=== PATIENT | female | born 1960 | race Caucasian/White ===

== ENCOUNTER 2016-10-15 07:33 | Day surgery (SDC) | payer MEDICARE, MEDICAID ==
--- NOTE | 2016-10-15 06:30 | History and Physical Report ---
DATE: 10/14/2016. CHIEF COMPLAINT: This patient presents with a history of an intractable central pain pattern currently treated by a spinal opioid infusion device with Baclofen. HISTORY OF PRESENT ILLNESS: She was referred to our facility from out of the region and arrived with a pump at battery depletion. She is here for programmable pump battery replacement. PAST MEDICAL HISTORY: Seizure disorder, central pain syndrome with cerebrovascular stroke. SOCIAL HISTORY: Smoking, caffeine. FAMILY HISTORY: Noncontributory. PAST SURGICAL HISTORY: Intraspinal opioid infusion system placement with revision and intracranial surgery. MEDICATIONS ON ADMISSION: List to be provided. ALLERGIES: None identified. REVIEW OF SYSTEMS: The patient is appropriate in no acute distress. The remainder of the systems review is positive for headaches and lower extremity pain. PHYSICAL EXAMINATION: General: Height and weight are not known. Vital Signs: Unavailable. HEENT: Within normal limits. Lungs: Clear. Heart: Regular rate and rhythm. Abdomen: Nontender. Musculoskeletal: Examination of the musculoskeletal system shows the pump in the left lower abdominal quadrant. The incisional site is intact. The midline incision for the catheter approximates L3-4. The tip of the catheter under imaging identified at T-1. Primary pain pattern appears to be lower extremity, left anterior surface. Sensory ag are intact. Ambulation: Assistive device utilized. Neurologic: Cranial nerves are intact. IMPRESSION: 1. CENTRAL PAIN SYNDROME WITH UPPER AND LOWER EXTREMITY SPASTICITY, ICD-10 CODE G89.0. 2. SPINAL OPIOID INFUSION SYSTEM WITH BACLOFEN, DEPLETED BATTERY. PLAN: The patient is here for battery replacement on an outpatient basis. No changes to the infusion parameters will be made at this time. The procedure will be considered outpatient, although an overnight stay will be evaluated. JOB NUMBER: [id number] cc: Dr. Benita SHERMAN
[~2016-10-15 07:33] MED LIST: ACETAMINOPHEN 1,000 MG/100 ML BTL IV ONE; BACLOFEN IV ONE; CEFAZOLIN 2 Gram 2 GM/50 ML BAG IVPB ONE; FAMOTIDINE 20MG TABLET PO ONE; MECLIZINE 25 MG TABLET PO ONE; METOCLOPRAMIDE 10 MG TABLET PO ONE; SODIUM CHLORIDE 0.9% IV ONE
[2016-10-15] MEDS ORDERED: LIDOCAINE 1% W/EPI 1:200,000 MPF 30ML SQ ONE (13:37)
[2016-10-15] MEDS ORDERED: BUPIVACAINE 0.5% W/EPI MPF 30 ML VIAL IVP ONE (13:37)
[2016-10-15] MEDS ORDERED: CEFAZOLIN 1G VIAL IM ONE (13:37)
[2016-10-15] MEDS ORDERED: LIDOCAINE 2% MDV (20MG/ML) 20ML VIAL IV ONE (14:00)
[2016-10-15] MEDS ORDERED: FENTANYL PF 100MCG/2ML VIAL IV ONE (14:00)
[2016-10-15] MEDS ORDERED: PROPOFOL 10 MG/ML VIAL IV ONE (14:00)
[2016-10-15] MEDS ORDERED: MIDAZOLAM HCL 2MG/2ML VIAL IV ONE (14:00)
--- NOTE | 2016-10-15 15:47 | Operative Note - Ferro ---
DATE OF SURGERY: 10/15/16 PREOPERATIVE DIAGNOSES: 1. CENTRAL PAIN SYNDROME, ICD-10 CODE = 89.0 2. BACLOFEN INFUSION SYSTEM FOR PAIN CONTROL BATTERY DEPLETION. OPERATION: 1. INCISION, SUBCUTANEOUS DISSECTION AND REMOVAL AND REPLACEMENT OF PROGRAMMABLE PUMP MEDTRONIC 20 ML BACLOFEN LEFT LOWER ABDOMINAL QUADRANT. 2. RESECTION CATHETER AT PUMP POUCH. 3. INTERFACE RESECTED CATHETER WITH NEW PUMP PRE-FILLED BACLOFEN. PROGRAMMING OF PUMP TO ORIGINAL INFUSION 120 MCG PER DAY BACLOFEN. 4. DIAGNOSTIC MYELOGRAPHY WITH RADIOLOGIC SUPERVISION AND INTERPRETATION. 5. CLOSURE OF INCISIONS VICRYL FOR FASCIA AND RUNNING SUBCUTICULAR VICRYL FOR SKIN. SURGEON: JACOB BEAL D.O. ANESTHESIA: LOCAL SEDATION. ANESTHESIA PROVIDER: SULEMA COOPER CRNA INDICATION: This patient presents with a post-stroke pain pattern, which is upper and lower extremity. A Baclofen infusion system infusing 120 mcg per day; Baclofen placed [place]. She is here for battery replacement. Recent programming identified battery depletion. PROCEDURE: Intravenous line, vital sign monitoring, IV sedation, prepped and draped with sterile technique by Anesthesia. Patient position on the Operating Room table supine. Pump pouch at the left lower abdominal quadrant was identified. Sterile prep, sterile technique. Under imaging, skin infiltrated, incision made, and subcutaneous dissection was conducted to the pump Dacron pouch. The Dacron was opened and the pump exteriorized. The pump was from the indwelling catheter, which was identified as an old style kinked and fibrosed. The internal catheter of the pouch was then resected with a new catheter component interfaced to the indwelling spinal catheter by way of a connector. A new pump placed onto the field was pre-filled with Baclofen. The resected catheter interfaced with the new pump. Antibiotic irrigation. Bovie for hemostasis in the pump. The pouch was then revised to accommodate the new pump. A suture was placed into the pump and then interfaced to the eyelet of the pump at approximately 2 o'clock on the pump face. The pump was then placed into the pouch, which was revised to accommodate it, and then suture used to secure the pump into the pouch. A 24-gauge Scott needle was inserted into the access port and 1 mL catheter contents was aspirated clearing the catheter of opioid and CSF mixture. Diagnostic myelography was then performed to the access port confirming catheter tip at T1-2. Smooth linear flow of contrast was confirmed. The pump was then programmed internally and through the extent of the catheter restarting and reinitiating infusion 120 mcg per day. With appropriate functionality of the system noted, the Dacron sleeve was then closed with nonabsorbable suture. The incision was then closed Vicryl for fascia and running subcuticular Vicryl for skin. Dermabond closure over the incision. She was transported to the Recovery Room stable showing no side- effects from the procedure or the sedation. Pump had been restarted and all parameters checked and verified. She will be monitored until stable. DISCHARGE INSTRUCTIONS: 1. Sites to remain clean and dry although the Dermabond will allow showering. 2. Standard medications resumed including Levaquin, the antibiotic, 500 mg once a day for 14 days. 3. Standard observations for the Baclofen have been provided. 4. The patient will be seen in the office in the next 5-7 days to check the incisional sites. She will continue antibiotics, keep her activities low. All other instructions provided, numbers to contact, problems given. At the point, she will be discharged. cc: Dr. Joy JOB NUMBER: [id number] MTDD
== END 2016-10-15 10:50 | disposition home or self-care (01) ==
LOC: SUR 07:33
PROVIDERS: ATTEND Pain Medicine Interventional Pain Medicine
DX: T85.890A Other specified complication of nervous system prosthetic devices, implants and grafts, initial encounter (principal); G89.0 Central pain syndrome; Z86.73 Personal history of transient ischemic attack (TIA), and cerebral infarction without residual deficits; G40.909 Epilepsy, unspecified, not intractable, without status epilepticus
CPT/HCPCS: 62362; 00300; 85002; Q9967; J3010; J0690; J0475

== ENCOUNTER → 2019-05-11 | Day surgery (SDC) | payer MEDICARE, MEDICAID ==
[~2019-05-11] MED LIST changes: -ACETAMINOPHEN 1,000 MG/100 ML BTL IV ONE; +ACETAMINOPHEN 1,000 MG/100 ML BTL IVPB ONE; -BACLOFEN IV ONE; +BUPIVACAINE 0.5% W/EPI MPF 30 ML VIAL SQ ONE; +CEFAZOLIN 1G VIAL IR ONE; +FENTANYL PF 100MCG/2ML VIAL IV ONE; +HYDROMORPHONE HCL 2 MG/ML VIAL IV ONE; +LIDOCAINE 1% W/EPI 1:100,000 MDV 20 ML VIAL SQ ONE; +LIDOCAINE 2% MDV (20MG/ML) 20ML VIAL IV ONE; +MIDAZOLAM HCL 2MG/2ML VIAL IV ONE; +PROPOFOL 10 MG/ML VIAL IV ONE; +RINGERS SOLUTION,LACTATED 1,000 ML IV ONE; -SODIUM CHLORIDE 0.9% IV ONE
--- NOTE | 2019-05-11 06:24 | History and Physical - Ferro ---
CHIEF COMPLAINT/HISTORY OF CHIEF COMPLAINT: This patient with a history of a post stroke syndrome had a spinal cord stimulator trial conducted on 04/07/19 with 75-85% pain control. Due to the failure of all other therapies and the success of the trial and the continued pain in her right lower extremity, she is here for implantation of a permanent system. Her current pain level is at 9.5/10. PAST MEDICAL HISTORY: Seizure disorder, post stroke syndrome and arthritis. PAST SURGICAL HISTORY: List to be provided. MEDICATIONS ON ADMISSION: List to be provided. ALLERGIES: None. FAMILY/PSYCHOSOCIAL HISTORY: Social history - Smoking and caffeine. Family history - Noncontributory. SYSTEMS REVIEW: The patient is appropriate in no acute distress. PHYSICAL EXAMINATION: Height and weight are not known. Vital signs are not available. HEENT: Within normal limits. LUNGS: Clear. HEART: Rapid and regular. ABDOMEN: Nontender. MUSCULOSKELETAL: Examination of the musculoskeletal system shows diffuse tenderness lumbar spine. Range of motion difficult and painful across the low back and into the right lower extremity. Ambulation - Antalgic. Assistive device utilized. NEUROLOGIC: Cranial nerves are intact. IMPRESSION: LUMBAR RADICULOPATHY, ICD-10 CODE M54.16 AND M54.17. PLAN: The patient is here for implantation of a permanent spinal cord stimulator after failure of all other therapies and the success of the trial. The procedure will be considered outpatient although an overnight stay will be evaluated. The potential risks, side effects and complications have all been reviewed and discussed. JOB NUMBER: [id number] MTDD
--- NOTE | 2019-05-11 12:41 | Operative Note - Ferro ---
DATE OF SURGERY: 05/11/2019 PREOPERATIVE DIAGNOSIS: LUMBAR RADICULOPATHY, ICD-10 CODE M54.16 AND M54.17. OPERATION: 1. FLUOROSCOPICALLY GUIDED LEFT EPIDURAL ACCESS T11-T12, PLACEMENT OF SPINAL CORD STIMULATOR LEAD 1 [employer] INFINION 16, 6-ELECTRODES POSITIONED LEFT T6. 2. FLUOROSCOPICALLY GUIDED EPIDURAL ACCESS LEFT T12-L1, PLACEMENT OF SPINAL CORD STIMULATOR LEAD 2 [employer] INFINION 16, 6-ELECTRODES POSITIONED RIGHT T6. 3. COMPLEX PROGRAMMING OF LEAD 1 OVER TWENTY MINUTES FOLLOWED BY COMPLEX PROGRAMMING OF LEAD 2 OVER TWENTY MINUTES. 4. INCISION, SUBCUTANEOUS DISSECTION, ANCHORING OF LEAD 1 AND LEAD 2 TO THE SUPRASPINOUS FASCIA WITH A [employer] LOCKING ANCHOR AND NONABSORBABLE SUTURE. 5. INCISION, SUBCUTANEOUS DISSECTION, AND CREATION OF SUBCUTANEOUS POUCH AT RIGHT POSTERIOR GLUTEAL MARGIN PLACEMENT OF GENERATOR IDENTIFIED A [employer] PROGRAMMABLE RECHARGEABLE WAVEWRITER. 6. TUNNELLING OF LEADS INTO THE GENERATOR POUCH, EACH LEAD INTERFACED WITH GENERATOR. 7. PLACEMENT OF GENERATOR POUCH, PLACEMENT OF LEADS INTO POUCH, CLOSURE OF BOTH INCISIONS STRATAFIX SUTURE 2-0 FASCIA AND 3-0 SKIN. DERMABOND CLOSURE. 8. COMPLEX RECOVERY ROOM PROGRAMMING INTERNAL GENERATOR HOME USE TWO STIMULATORS RECOVERY ROOM TWENTY MINUTES. SURGEON: Drake Castillo D.O. ANESTHESIA: Local sedation. ANESTHESIA PROVIDER: Sage Emanuel CRNA INDICATION: This patient presents with a history of an intractable lumbar radiculopathy. Due to the failure of therapy, a spinal cord stimulator trial was conducted with 75+% pain control. Improved functionality, mobility, and better quality of life. Due to the failure of all other therapies and the success of the trial, the patient presents for implantation of a permanent system. PROCEDURE: Intravenous line, vital sign monitoring, IV sedation by Anesthesia. The patient was positioned prone. Sterile prep, sterile technique. Under imaging the epidural interspace from the left at T11-T12 and T12-L1 were both marked, infiltrated, using separate curved access Epimed needles with loss of resistance this space was accessed. At T11-T12 the spinal cord stimulator Lead 1, a [employer] Infinion 16, 6-electrodes was positioned left at T6. At the access at T12-L1, the spinal cord stimulator Lead 2 also [employer] Infinion 16, 6-electrodes positioned right at T6. Complex programming Lead 1 over twenty minutes followed by complex programming of Lead 2 over twenty minutes resulting in a complete pattern of stimulation across the back into the legs. The patient is indicating that we hit all of the areas of the pain. She was given the option to implant, continued to program or remove and she opted to implant. Questions were repeated with the same response. The skin above and below both needles was infiltrated, incision made, and subcutaneous dissection was conducted to the supraspinous fascia. At each of the leads the needles were removed and each lead was anchored to the supraspinous fascia with a [employer] locking anchor and nonabsorbable suture. At the right posterior gluteal margin at a site picked by the patient for the generator the skin was infiltrated, incision made and subcutaneous dissection was conducted to form a pouch of suitable size and depth for the generator, a [employer] programmable rechargeable WaveWriter. Antibiotic irrigation and Bovie for hemostasis. A tunnelling tool was used to carry the leads into the generator pouch and then each lead was interfaced with the generator. The generator was placed into the pouch, the leads were placed into their own pouch and then both incisions were closed using Stratafix suture 2-0 fascia and 3-0 skin. A Dermabond closure to approximate the edges of the wound. She was transferred to the Recovery Room stable. There were no side effects from the procedure or the sedation. When fully awake and alert complex programming of the generator was performed in the Recovery Room for twenty minutes reestablishing stimulation pain control to all of the appropriate areas. She was instructed on the use of the system as was her and then prepared for discharge. DISCHARGE INSTRUCTIONS: 1. The sites are to remain clean and dry. No showering or bathing in any way that would disrupt dressings, if it happens contact the clinic. The Dermabond will allow showering, but not sitting in water. 2. Standard medications will be resumed including the antibiotic Keflex, she will take 500 mg four times a day, ten days, a script was called by the hospital. A prescription for [place] to manage incisional pain has been provided. 3. Office to contact the patient in 12-24 hours to set-up a time in 7-10 days for us to evaluate the sites, until then she is to keep activities controlled, limiting bend, lift, push, pull. All other instructions are provided , numbers to contact if problems given. She was then discharged. JOB NUMBER: [id number] [facility] [place] [facility]
--- NOTE | 2019-05-12 20:32 | RADIOLOGY REPORT ---
EXAMINATION: Thoracic Spine Single View EXAM DATE: 05/11/2019 1:18 PM TECHNIQUE: AP INDICATION: S/P SCS IMPLANT, LEADS AND GENERATOR COMPARISON: None ENCOUNTER: Initial FINDINGS: Spinal cord stimulator leads in place with the tip at T5-T6 level. Other tubing overlies patient spin e. Levoconvex thoracic curvature. IMPRESSION: Documentation of stimulator implant. Dictated by: Lai Orantes MD on 05/12/2019 8:29 PM. .
== END | disposition home or self-care (01) ==
LOC: SUR 07:52
PROVIDERS: ATTEND Pain Medicine Interventional Pain Medicine
DX: M54.16 Radiculopathy, lumbar region (principal); M54.17 Radiculopathy, lumbosacral region; R56.9 Unspecified convulsions; Z86.73 Personal history of transient ischemic attack (TIA), and cerebral infarction without residual deficits
CPT/HCPCS: 63650; 63685; 01936; 95972; 85002; 72020; C1883; C1820; J3010; J1170; J0690; J7120